=== PATIENT | female | born 1950 | race Caucasian/White ===

== ENCOUNTER 2024-05-04 11:41 | Emergency (ER) | payer MEDICARE, SELFPAY ==
--- NOTE | ~2024-05-04 | XR_ITS ---
EXAMINATION: XR chest 2V DATE: 05/04/2024 12:59 INDICATION: Productive cough. TECHNIQUE: Frontal and lateral views of the chest were obtained. COMPARISON: None. FINDINGS: There is volume loss of left hemithorax. There are airspace opacities in left mid and upper lung zones with architectural distortion. No pleural effusion or pneumothorax. The heart size is nor mal. There is a left chest wall pacer with leads in the right atrium and right ventricle. There is he ight loss of multiple vertebral bodies. IMPRESSION: 1. Volume loss of left hemithorax with airspace opacities in left mid and lower lung zones, consisten t with atelectasis/scarring versus pneumonia. Reviewed, dictated and finalized at location A. IMPRESSION: 1. Volume loss of left hemithorax with airspace opacities in left mid and lower lung zones, consistent with atelectasis/scarring versus pneumonia.
[2024-05-04 11:55] VITALS: BP 106/67; PULSE 85; RESP 18; TEMP 37.1; O2SAT 98
[2024-05-04 12:10] VITALS: BP 106/67; PULSE 85; RESP 18; TEMP 37.1; O2SAT 98
--- NOTE | 2024-05-04 12:33 | PC.NURSE ---
said wanted to leave. wanted to be called with test results for covid and flu. son here but outside to make phone call. aware all care offered is always choice. said would wait a little longer. [facility] filler did explain tx plan and [facility] filler is waiting to talk to son.
--- NOTE | 2024-05-04 12:57 | PC.NURSE ---
came from [facility] and said to rnp and this rn did not have 20 more minutes to wait and wanted to leave. rnp told pt son had left for a few minutes and would be back. went to door and said not staying. rnp called son and is aware. said is on his way back.
[2024-05-04 12:58] LABS: EDCOVIDSCREEN Negative (Negative); EDINFLUASCREEN Negative (Negative); EDINFLUBSCREEN Negative (Negative)
--- NOTE | 2024-05-04 13:47 | PC.NURSE ---
nonprofit manager aware of xray results. will call pt and pt son. pt did leave with son earlier. said would not wait here for results.
--- NOTE | 2024-05-04 14:46 | ED.URI ---
HPI - URI/Sore Throat General Chief Complaint: Upper Respiratory Infection Stated Complaint: cough,shortness of breath Time Seen by Provider: 05/04/24 11:58 Source: patient, RN notes reviewed and old records reviewed Mode of arrival: ambulatory Limitations: no limitations History of Present Illness HPI Narrative: 73-year-old female to with complaint of productive cough with yellow/ green sputum , body aches, decreased appetite fluids since yesterday. Patient history of COPD and pneumonia requiring hospitalization. Patient denies fevers, chills, GI complaints, chest pain. Patient able to tolerate fluids by mouth. Patient resting in exam room in no acute distress. Respirations even and nonlabored. Patient able to speak in complete sentences without difficulty. Related Data Home Medications Medication Instructions Recorded Confirmed albuterol sulfate 90 mcg/actuation inhalation 05/04/24 aerosol inhaler (Ventolin HFA) alprazolam 1 mg tablet mg 05/04/24 aspirin 81 mg chewable tablet 05/04/24 atorvastatin 40 mg tablet mg 05/04/24 buspirone 10 mg tablet mg 05/04/24 escitalopram oxalate 10 mg tablet mg 05/04/24 fluticasone fur. 200 mcg-umeclid inhalation 05/04/24 62.5 mcg-vilant 25 mcg inhalat.powder (Trelegy Ellipta) furosemide 20 mg tablet mg 05/04/24 gabapentin 300 mg capsule mg 05/04/24 levetiracetam 1,000 mg tablet mg PO 05/04/24 midodrine 10 mg tablet mg 05/04/24 Allergies Allergy/AdvReac Type Severity Reaction Status Date / Time No Known Allergies Allergy Verified 05/04/24 11:51 Review of Systems Review of Systems: All systems reviewed & are unremarkable except as noted in HPI and below Constitutional: Constitutional: Reports as per HPI, Reports body ache(s) and Reports poor appetite Eyes: Eyes: Reports no additional eye complaints ENT: Reports system reviewed and no additional complaints, except as documented Cardiovascular: Cardiovascular: Reports no additional cardiovascular complaints, Denies chest pain and Denies dyspnea Respiratory: Respiratory: Reports no additional respiratory complaints, Reports change in phlegm color ( Yellow/green), Reports cough and Denies dyspnea Musculoskeletal: Musculoskeletal: Reports no additional musculoskeletal complaints Neurologic: Reports system reviewed and no additional complaints, except as documented Psychiatric: Psychiatric: Reports no additional psychiatric complaints PMFSH Comments At the time of my signature, I reviewed and agree with the nursing past medical, surgical, social, and family history. There is no relevant family history pertinent to the patient complaint. Exam Const: General: cooperative, comfortable, no acute distress, alert, ill appearing chronically, tired appearing, well nourished and thin Nutritional Appearance: well nourished Orientation/consciousness: patient oriented x3 Limitations: no limitations HENMT: Head: normal to inspection Ears: external ears normal Face/Nose/Sinus: Normal external nose present, Normal nares present, normal facial exam, No erythema and No edema Face and sinus: normal facial exam, no erythema and no edema Mouth: Yes Normal oral and palatal mucosa present Eyes: General: appearance normal, both eyes and all related structures Neck: Neck: normal visual inspection, full ROM and no meningeal signs Lymphatic: no lymphadenopathy noted and no lymphedema noted Chest: Chest palpation & inspection: normal inspection of the chest Resp: Effort & Inspection: normal respiratory effort and able to speak in complete sentences Auscultation: diminished lung sounds bilateral in the lower lung fong Cardio: Jugular venous distension: no JVD Rate: regular rate Rhythm: regular rhythm Back/Spine/Pelvis: Cervical Spine: cervical ROM normal Skin: General skin exam: normal color, no rashes or lesions noted and turgor normal Neuro: General: patient oriented x3, gait normal, moves all extremities and no meningeal signs Speech: normal speech Gait exam (Neuro): Normal gait present Extrem: General: normal to inspection, full ROM and capillary refill normal Psych: Appearance: grossly normal and well kempt Course Course Emergency Course: LMOM on number in file for pt to return our call. When call is returned, we will discuss xray results since pt left A prior to results being available. LMOM on number listed for patient's son, Georgi. Awaiting return call. Level of Care: Express Care Visit Vital Signs Vital signs: Vital Signs Temperature 37.1 C 05/04/24 11:55 Pulse Rate 85 05/04/24 11:55 Respiratory Rate 18 05/04/24 11:55 Blood Pressure 106/67 05/04/24 11:55 Pulse Oximetry 98 05/04/24 11:55 Oxygen Delivery Room Air 05/04/24 11:55 Temperature 37.1 C 05/04/24 12:10 Pulse Rate 85 05/04/24 12:10 Respiratory Rate 18 05/04/24 12:10 Blood Pressure 106/67 05/04/24 12:10 Pulse Oximetry 98 05/04/24 12:10 Oxygen Delivery Room Air 05/04/24 12:10 reviewed MDM - URI/Sore Throat MDM Narrative Medical decision making narrative: 73-year-old female to with complaint of productive cough with yellow/ green sputum , body aches, decreased appetite fluids since yesterday. Patient history of COPD and pneumonia requiring hospitalization. Patient denies fevers, chills, GI complaints, chest pain. Patient able to tolerate fluids by mouth. Patient resting in exam room in no acute distress. Respirations even and nonlabored. Patient able to speak in complete sentences without difficulty. On auscultation, bilateral lower lung sounds diminished. Upon return from x-ray, patient states she wants to leave. Patient advised that she needs to stay until radiology results are received to ensure patient does not have pneumonia. Patient persistent that she wants to leave, walks past provider and nurse, output into waiting room and through the front door of [facility]. Patient's son called to advise that patient left AMA. Radiology results Volume loss of left hemithorax with airspace opacities in left mid and lower lung zones, consistent with atelectasis/scarring versus pneumonia. prescriptions sent to patient's pharmacy. Voice mails left for patient and patient's son to return call to [facility]. Awaiting return call. Differential Diagnosis Differential diagnosis: Likely upper respiratory infection, croup, otitis media, sinusitis, viral infection, bronchitis, influenza and pharyngitis Lab Data Labs: Lab Results 05/04/24 Range/Units 12:56 POC Influenza A Ag Negative (Negative) POC Influenza B Ag Negative (Negative) POC SARS CoV-2 Ag Negative (Negative) Imaging Data Radiologist's impression: EXAMINATION: XR chest 2V DATE: 05/04/2024 12:59 INDICATION: Productive cough. TECHNIQUE: Frontal and lateral views of the chest were obtained. COMPARISON: None. FINDINGS: There is volume loss of left hemithorax. There are airspace opacities in left mid and upper lung zones with architectural distortion. No pleural effusion or pneumothorax. The heart size is normal. There is a left chest wall pacer with leads in the right atrium and right ventricle. There is height loss of multiple vertebral bodies. IMPRESSION: 1. Volume loss of left hemithorax with airspace opacities in left mid and lower lung zones, consistent with atelectasis/scarring versus pneumonia. Discharge Plan Discharge Clinical Impression: Pneumonia Patient Disposition: Left Against Medical Advice Condition: Stable Prescriptions: New amoxicillin-pot clavulanate 875-125 mg tablet 1 tablet PO Q12H 5 Days Qty: 10 0RF levofloxacin 750 mg tablet 750 mg PO DAILY Qty: 5 0RF No Action atorvastatin 40 mg tablet alprazolam 1 mg tablet buspirone 10 mg tablet gabapentin 300 mg capsule aspirin 81 mg tablet,chewable furosemide 20 mg tablet albuterol sulfate [Ventolin HFA] 90 mcg/actuation HFA aerosol inhaler INHALATION midodrine 10 mg tablet escitalopram oxalate 10 mg tablet levetiracetam 1,000 mg tablet PO Trelegy Ellipta 200-62.5-25 mcg blister with device INHALATION Follow-up/Referrals: UNKNOWN,DOCTOR [Primary Care Provider] -
== END 2024-05-04 13:05 | disposition left against medical advice (07) ==
PROVIDERS: Emergency Provider Nurse Practitioner Family
DX: J18.9 Pneumonia, unspecified organism (principal); Z20.822 Contact with and (suspected) exposure to COVID-19; J44.9 Chronic obstructive pulmonary disease, unspecified; I20.9 Angina pectoris, unspecified; E78.00 Pure hypercholesterolemia, unspecified; Z95.0 Presence of cardiac pacemaker
CPT/HCPCS: 71046; 87426; 87804; 99203; G0463